=== PATIENT | female | born 1940 | race Caucasian/White ===

== ENCOUNTER 2018-11-27 14:05 | Emergency (ER) | payer MEDICARE, OTHER ==
--- NOTE | 2018-11-27 14:57 | ERPHSYRPT ---
- History of Present Illness Time Seen by Provider: 11/27/18 14:57 Source: patient Exam Limitations: no limitations Patient Subjective Stated Complaint: Pt states "I was mowing and I was filling up the mower and the gas sprayed into my face and eyes." Triage Nursing Assessment: Pt alert and oriented X 3, skin pwd. Pt ambulates with an upright steady gait, able to speak in clear full sentences. PT in no apparent respiratory distress. PT right eye sliglhtly red Physician History: Pt states "I was mowing and I was filling up the mower and the gas sprayed into my face and eyes." Timing/Duration: today Location: right eye Severity: mild Apparent Injury: no Associated Symptoms: burning Visual Assistive Devices: None Allergies/Adverse Reactions: shrimp Allergy (Severe, Verified 11/27/18 14:33) diphenhydramine [From Benadryl] Allergy (Verified 11/27/18 14:33) Penicillins Allergy (Verified 11/27/18 14:33) Home Medications: Alendronate Sodium [Fosamax] 70 mg PO DAILY 11/27/18 [History] Hx Tetanus, Diphtheria Vaccination/Date Given: Yes Hx Influenza Vaccination/Date Given: Yes Hx Pneumococcal Vaccination/Date Given: Yes Immunizations Up to Date: Yes - Review of Systems Constitutional: No Symptoms Eyes: Eye Pain, Eye Redness, No Photophobia, No Tearing, No Vision Changes, No Double Vision, No Foreign Body Sensation Ears, Nose, & Throat: No Symptoms Respiratory: No Symptoms - Past Medical History Pertinent Past Medical History: No - Past Surgical History Past Surgical History: Yes Other Surgical History: hysterectomy. ocvarian. rt foot. back - Social History Smoking Status: Never smoker Exposure to second hand smoke: No Drug Use: none Patient Lives Alone: Yes - Female History Hx Now: No - Nursing Vital Signs Nursing Vital Signs: Initial Vital Signs Temperature 98.8 F 11/27/18 14:25 Pulse Rate 82 11/27/18 14:25 Respiratory Rate 16 11/27/18 14:25 Blood Pressure 133/72 11/27/18 14:25 O2 Sat by Pulse Oximetry 97 11/27/18 14:25 Pain Scale Pain Intensity 3 - Physical Exam General Appearance: no apparent distress Vision Acuity Degree Evaluation Phase: Corrected Vision Acuity Right Eye: 20/20 Eye Exam: bilateral eye: normal inspection, PERRL, EOMI SpO2: 97 - Course Nursing assessment & vital signs reviewed: Yes - Progress Progress: unchanged Counseled pt/family regarding: diagnosis, need for follow-up - Departure Departure Disposition: Home Clinical Impression: Chemical exposure of eye Condition: Stable Critical Care Time: No Referrals: SAVITA CHAPPELL [Primary Care Provider] - Instructions: Chemical Eye Injury (DC) Additional Instructions: EYE PROBLEM 1. If a patch is applied, your vision will be impaired. Do not drive. 2. The more you rest your good eye, the better your affected eye will feel. 3. Use any eye drops or ointments as prescribed by the emergency room physician. 4. See your family physician or return to the emergency department for any increasing pain or decreased vision. 5. Use good hygiene and keep eye clean. 6. Do not rub the eye. use prescribed eye drops for 5 days
[2018-11-27 15:01] VITALS: BP 146/72; PULSE 16
[2018-11-27 15:03] VITALS: O2SAT 97
== END 2018-11-27 15:10 | disposition home or self-care (01) ==
LOC: ED 14:05
DX: H16.211 Exposure keratoconjunctivitis, right eye (principal); Z77.098 Contact with and (suspected) exposure to other hazardous, chiefly nonmedicinal, chemicals
CPT/HCPCS: 99284; A9270-GY

== ENCOUNTER 2022-12-27 21:04 | Emergency (ER) | payer MEDICARE ==
[2022-12-27 21:23] LABS: Absolute Neutrophil Ct (ANC) 2.02 x10^3/uL (1.4-6.9); BASOPHIL % 0.8 % (0.0-0.4); Basophil (Absolute #) 0.03 x10^3/uL (0-0.4); Eosinophil (Absolute #) 0.27 x10^3/uL (0-0.5); Hematocrit 32.2 % (35-47); Hemoglobin 10.8 g/dL (12.0-16.0); IMMATURE GRAN # 0.01 x10^3u/L (0.00-0.03); IMMATURE GRAN % 0.3 % (0.00-0.4); Lymphocyte (Absolute #) 0.99 x10^3/uL (1.0-4.6); Lymphocytes % 25.8 % (24.0-44.0); Mean Cell Volume 94.4 fL (78-100); Mean Corpuscular Hemoglobin 31.7 pg (26-32); Mean Corpuscular Hgb Concent. 33.5 g/dL (32-36); Monocyte (Absolute #) 0.51 x10^3/uL (0.0-1.3); Monocytes % 13.3 % (0.0-12.0); Neutrophil % 52.8 % (36.0-66.0); Platelet Count 186 x10^3/uL (150-450); Red Blood Count 3.41 x10^6/uL (4.1-5.4); Red Cell Distribution Width 12.9 % (11.5-14.0); White Blood Count 3.8 x10^3/uL (4.0-10.5)
[2022-12-27 21:37] LABS: ALBUMIN 4.5 g/dL (3.5-5.0); ANION GAP 15.9 MEQ/L (5-15); BILIRUBIN,TOTAL 0.6 mg/dL (0.2-1.3); Creatinine 1 1.21 mg/dL (0.52-1.04); EST GLOMERULAR FILTRATION RATE 45.3 ML/MIN; INR 0.96 (0.8-3.0); MAGNESIUM 2.1 mg/dL (1.6-2.3); PROTIME 10.5 SECONDS (9.4-12.5); PTT 31.4 SECONDS (25.1-36.5); Potassium 4.6 mmol/L (3.5-5.1); Total Protein 7.5 g/dL (6.3-8.2)
--- NOTE | 2022-12-27 21:53 | ERPHSYRPT ---
- History of Present Illness Source: patient Exam Limitations: no limitations Patient Subjective Stated Complaint: pt states she has been feeling bad for approx 1 hour and worse for last 20 min Triage Nursing Assessment: pt alert and oriented, answers questions approp. pt back to room per wheelchair, transfers to stretcher with assist of 1. respirations nonlabored. skin warm and dry. heart rate 70-99 on monitor, a fib. 2-3+ edema to bilat lower ext. Physician History: 82 yo WF w 1 hr onset of palpatations/mild dyspnea/mild chest tightness while sitting. Her Apple Watch stated that she was in Afib which she was upon ER arrival. Pt only has a h/o HTN and denies Afib/AZ/CAD/DM/tobacco use/hyperlipidemia. Timing/Duration: hour(s) (1hour) Activities at Onset: rest (Sitting in chair) Quality: tightness Location: substernal Chest Pain Radiation: no radiation Severity of Pain-Max: moderate Severity of Pain-Current: mild Modifying Factors: Improves With: nothing Nitro Today/Relief: no nitro taken today Aspirin Treatment Today: no aspirin today Associated Symptoms: denies symptoms, shortness of breath, chest pain Prior Chest Pain/Cardiac Workup: no prior chest pain Allergies/Adverse Reactions: Iodinated Contrast Media Allergy (Severe, Verified 12/27/22 21:34) shrimp Allergy (Severe, Verified 12/27/22 21:34) diphenhydramine [From Benadryl] Allergy (Intermediate, Verified 12/27/22 21:34) doxycycline [From Vibramycin] Allergy (Intermediate, Verified 12/27/22 21:34) influenza virus vaccine ts [id number] (36 mos,up) [From Fluarix] Allergy (Intermediate, Verified 12/27/22 21:56) Penicillins Allergy (Intermediate, Verified 12/27/22 21:34) Home Medications: Losartan Potassium [Cozaar] 100 mg PO DAILY 12/27/22 [History] Oxybutynin Chloride [Ditropan Xl] 5 mg PO TIDPRN PRN 12/27/22 [History] Ropinirole HCl 1 mg PO BID PRN PRN 12/27/22 [History] Hx Tetanus, Diphtheria Vaccination/Date Given: Yes Hx Influenza Vaccination/Date Given: No Hx Pneumococcal Vaccination/Date Given: Yes Immunizations Up to Date: Yes Travel Risk - International Travel Have you traveled outside of the country in past 3 weeks: No - Coronavirus Screening Are you exhibiting any of the following symptoms?: No Close contact with a COVID-19 positive Pt in past 14-21 Days: No - Vaccine Status Have you recieved a Covid-19 vaccination: No - Review of Systems Constitutional: No Symptoms Eyes: No Symptoms Ears, Nose, & Throat: No Symptoms Respiratory: No Symptoms, Dyspnea Cardiac: No Symptoms, Chest Pain Abdominal/Gastrointestinal: No Symptoms Genitourinary Symptoms: No Symptoms Musculoskeletal: No Symptoms Skin: No Symptoms Neurological: No Symptoms Psychological: No Symptoms Endocrine: No Symptoms Hematologic/Lymphatic: No Symptoms Immunological/Allergic: No Symptoms - Past Medical History Pertinent Past Medical History: Yes Neurological History: No Pertinent History Cardiac History: Hypertension Respiratory History: No Pertinent History Endocrine Medical History: No Pertinent History Musculoskeletal History: Osteoarthritis Other Medical History: Bonionectomy and fusions in 1993 - Past Surgical History Past Surgical History: Yes Other Surgical History: hysterectomy. ocvarian. rt foot. back - Social History Smoking Status: Never smoker Exposure to second hand smoke: No Drug Use: none Patient Lives Alone: Yes - Nursing Vital Signs Nursing Vital Signs: Initial Vital Signs Temperature 97.2 F 12/27/22 21:05 Pulse Rate 84 12/27/22 21:05 Respiratory Rate 18 12/27/22 21:05 Blood Pressure 159/100 12/27/22 21:05 O2 Sat by Pulse Oximetry 99 12/27/22 21:05 Pain Scale Pain Intensity 4 Hypertensive - Physical Exam General Appearance: no apparent distress Eye Exam: PERRL/EOMI, eyes nml inspection Ears, Nose, Throat Exam: normal ENT inspection, TMs normal, pharynx normal, moist mucous membranes Neck Exam: normal inspection, non-tender, supple, full range of motion, No meningismus, No mass, No Brudzinski, No Kernig's, No carotid bruit Respiratory Exam: normal breath sounds, lungs clear, airway intact, No chest tenderness, No respiratory distress Cardiovascular Exam: capillary refill <2 sec, other (IR-IR), No murmur Gastrointestinal/Abdomen Exam: soft, normal bowel sounds, No tenderness Back Exam: normal inspection, normal range of motion, No CVA tenderness, No vertebral tenderness Extremity Exam: normal inspection, normal range of motion Neurologic Exam: alert, oriented x 3, cooperative, business info consultant II-XII nml as tested, normal mood/affect, nml cerebellar function, nml station & gait, sensation nml Skin Exam: normal color, warm, dry Lymphatic Exam: No adenopathy SpO2 Interpretation: normal SpO2: 97 O2 Delivery: Room Air - Course EKG Interpreted by Me: RATE (Rate 83/Afib/Normal QT-QTc/Nonspecific ST changes) Ordered Tests: Active Orders 24 hr Category Date Time Status EKG-ER Only STAT Care 12/27/22 21:12 Completed CHEST 1 VIEW (PORTABLE) Stat Exams 12/27/22 21:13 Completed CBC W DIFF Stat Lab 12/27/22 21:20 Completed CMP Stat Lab 12/27/22 21:20 Completed MAGNESIUM Stat Lab 12/27/22 21:20 Completed NT PRO BNPII Stat Lab 12/27/22 21:20 Completed PROTIME WITH INR Stat Lab 12/27/22 21:20 Completed PTT Stat Lab 12/27/22 21:20 Completed TROPONIN Q4H Lab 12/27/22 21:20 Completed Medication Summary Discontinued Medications Generic Name Dose Route Start Last Admin Trade Name Freq PRN Reason Stop Dose Admin Enoxaparin Sodium 70 mg 12/27/22 23:33 12/28/22 00:09 Enoxaparin Sodium 80 Mg/0.8 Ml Syringe SQ 12/27/22 23:34 70 mg STAT ONE Administration Enoxaparin Sodium Confirm 12/28/22 00:08 Enoxaparin Sodium 80 Mg/0.8 Ml Syringe Administered 12/28/22 00:09 Dose 80 mg SQ .STK-MED ONE Lab/Rad Data: Laboratory Result Diagrams 12/27/22 21:20 12/27/22 21:20 Laboratory Results 12/27/22 12/27/22 12/27/22 Range/Units 21:20 21:20 21:20 WBC (4.0-10.5) x10^3/uL RBC (4.1-5.4) x10^6/uL Hgb (12.0-16.0) g/dL Hct (35-47) % MCV (78-100) fL MCH (26-32) pg MCHC (32-36) g/dL RDW (11.5-14.0) % Plt Count (150-450) x10^3/uL MPV (7.5-11.0) fL Gran % (36.0-66.0) % Immature Gran % (Auto) (0.00-0.4) % Nucleat RBC Rel Count (0.00-0.1) % Eos # (Auto) (0-0.5) x10^3/uL Immature Gran # (Auto) (0.00-0.03) x10^3u/L Absolute Lymphs (auto) (1.0-4.6) x10^3/uL Absolute Monos (auto) (0.0-1.3) x10^3/uL Absolute Nucleated RBC (0.00-0.01) x10^3u/L Lymphocytes % (24.0-44.0) % Monocytes % (0.0-12.0) % Eosinophils % (0.00-5.0) % Basophils % (0.0-0.4) % Absolute Granulocytes (1.4-6.9) x10^3/uL Basophils # (0-0.4) x10^3/uL PT 10.5 (9.4-12.5) SECONDS INR 0.96 (0.8-3.0) APTT 31.4 (25.1-36.5) SECONDS Sodium (137-145) mmol/L Potassium (3.5-5.1) mmol/L Chloride (98-107) mmol/L Carbon Dioxide (22-30) mmol/L Anion Gap (5-15) MEQ/L BUN (7-17) mg/dL Creatinine (0.52-1.04) mg/dL Estimated GFR ML/MIN Glucose (74-106) mg/dL Calcium (8.4-10.2) mg/dL Magnesium (1.6-2.3) mg/dL Total Bilirubin (0.2-1.3) mg/dL AST (14-36) U/L ALT (0-35) U/L Alkaline Phosphatase (38-126) U/L Troponin I < 0.012 (0.000-0.034) ng/mL NT-Pro-B Natriuret Pep 1010 (<300) pg/mL Serum Total Protein (6.3-8.2) g/dL Albumin (3.5-5.0) g/dL 12/27/22 12/27/22 Range/Units 21:20 21:20 WBC 3.8 L (4.0-10.5) x10^3/uL RBC 3.41 L (4.1-5.4) x10^6/uL Hgb 10.8 L (12.0-16.0) g/dL Hct 32.2 L (35-47) % MCV 94.4 (78-100) fL MCH 31.7 (26-32) pg MCHC 33.5 (32-36) g/dL RDW 12.9 (11.5-14.0) % Plt Count 186 (150-450) x10^3/uL MPV 9.0 (7.5-11.0) fL Gran % 52.8 (36.0-66.0) % Immature Gran % (Auto) 0.3 (0.00-0.4) % Nucleat RBC Rel Count 0.0 (0.00-0.1) % Eos # (Auto) 0.27 (0-0.5) x10^3/uL Immature Gran # (Auto) 0.01 (0.00-0.03) x10^3u/L Absolute Lymphs (auto) 0.99 L (1.0-4.6) x10^3/uL Absolute Monos (auto) 0.51 (0.0-1.3) x10^3/uL Absolute Nucleated RBC 0.00 (0.00-0.01) x10^3u/L Lymphocytes % 25.8 (24.0-44.0) % Monocytes % 13.3 H (0.0-12.0) % Eosinophils % 7.0 H (0.00-5.0) % Basophils % 0.8 (0.0-0.4) % Absolute Granulocytes 2.02 (1.4-6.9) x10^3/uL Basophils # 0.03 (0-0.4) x10^3/uL PT (9.4-12.5) SECONDS INR (0.8-3.0) APTT (25.1-36.5) SECONDS Sodium 136 L (137-145) mmol/L Potassium 4.6 (3.5-5.1) mmol/L Chloride 99 (98-107) mmol/L Carbon Dioxide 26 (22-30) mmol/L Anion Gap 15.9 H (5-15) MEQ/L BUN 27 H (7-17) mg/dL Creatinine 1.21 H (0.52-1.04) mg/dL Estimated GFR 45.3 ML/MIN Glucose 95 (74-106) mg/dL Calcium 10.0 (8.4-10.2) mg/dL Magnesium 2.1 (1.6-2.3) mg/dL Total Bilirubin 0.60 (0.2-1.3) mg/dL AST 32 (14-36) U/L ALT 16 (0-35) U/L Alkaline Phosphatase 78 (38-126) U/L Troponin I (0.000-0.034) ng/mL NT-Pro-B Natriuret Pep (<300) pg/mL Serum Total Protein 7.5 (6.3-8.2) g/dL Albumin 4.5 (3.5-5.0) g/dL - Progress Progress Note: 12/27/22 23:34 Nursing note and vital signs reviewed No food or housing insecurities noted Pt arrived in Afib w RVR which very quickly decreased to Rate controlled Afib wo any treatment Cardioversion considered since Afib of less than 24 hours in duration, but pt not ok w idea Additional history later per daughter Pt/daughter requested transfer to [facility] Pt accepted by Dr. Mcgrath at [facility]. 70mg sq Lovenox per Dr. Mcgrath 12/28/22 00:54 Counseled pt/family regarding: lab results, diagnosis, rad results Medical Desision Making - Independent Historian Additional History obtained from: Child - Discussion of managment Care discussed with:: hospitalist - Diagnostic Testing Diagnostic test were ordered, analyzed, and reviewed by me: Yes Radiological Interpretation: Interpreted by me - Risk of complications The pt has a high risk of morbidity or mortality based on: Drug therapy requiring intensive monitoring for toxicity - Departure Departure Disposition: Transfer Clinical Impression: Atrial fibrillation with controlled ventricular rate Condition: Stable Critical Care Time: No Referrals: JEN ORTIZ MD [Primary Care Provider] - Follow up/PCP as directed Instructions: Arrhythmias (DC), Palpitations (DC)
--- NOTE | 2022-12-27 22:23 | XRAY ---
Indication: Dyspnea. Atrial fibrillation. Comparison: None Portable chest inflated and clear. Heart not enlarged. Tortuous descending aorta. Bony thorax intact with osteopenia, mild degenerative changes, and mild lumbar dextroscoliosis. Impression: Nonacute chest with chronic features.
[2022-12-27 23:20] VITALS: O2SAT 97
[2022-12-27] MEDS ORDERED: ENOXAPARIN SODIUM SQ ONE (23:33)
[2022-12-28] MEDS ORDERED: ENOXAPARIN SODIUM SQ ONE (00:08)
[2022-12-28 00:13] VITALS: BP 154/82; PULSE 76
== END 2022-12-28 00:18 | disposition short-term general hospital (02) ==
LOC: ED 21:04
DX: I48.91 Unspecified atrial fibrillation (principal); R06.00 Dyspnea, unspecified; R07.9 Chest pain, unspecified; I10 Essential (primary) hypertension; Z79.899 Other long term (current) drug therapy; Z28.310 Unvaccinated for COVID-19
CPT/HCPCS: 36000; 36415; 71045; 80053; 83735; 83880; 84484; 85025; 85610; 85730; 93005; 96372; 99285; J1650

== ENCOUNTER 2024-08-31 22:29 | Emergency (ER) | payer MEDICARE ==
[2024-08-31 22:51] VITALS: TEMP 98.7
[2024-08-31] MEDS ORDERED: BABY ASPIRIN 81 MG CHEW ONE (23:00)
[2024-08-31] MEDS: BABY ASPIRIN 81 MG CHEW PO ONE (23:01)
[2024-08-31 23:08] LABS: Absolute Neutrophil Ct (ANC) 6.81 x10^3/uL (1.56-6.13); BASOPHIL % 0.4 % (0.1-1.2); Basophil (Absolute #) 0.03 x10^3/uL (0.01-0.08); Eosinophil % 1.8 % (0.7-5.8); Eosinophil (Absolute #) 0.14 x10^3/uL (0.04-0.36); Hematocrit 36.8 % (34.1-44.9); Hemoglobin 12.3 g/dL (11.2-15.7); IMMATURE GRAN # 0.04 x10^3u/L (0.001-0.031); IMMATURE GRAN % 0.5 % (0.001-0.429); Lymphocyte (Absolute #) 0.15 x10^3/uL (1.18-3.74); Mean Cell Volume 93.9 fL (79.4-94.8); Mean Corpuscular Hemoglobin 31.4 pg (25.6-32.2); Mean Corpuscular Hgb Concent. 33.4 g/dL (32.2-35.5); Mean Platelet Volume 8.5 fL (9.4-12.3); Monocyte (Absolute #) 0.45 x10^3/uL (0.24-0.86); Monocytes % 5.9 % (4.7-12.5); Neutrophil % 89.4 % (34.0-71.1); Platelet Count 212 x10^3/uL (182-369); Red Blood Count 3.92 x10^6/uL (3.93-5.22); Red Cell Distribution Width 13.1 % (11.7-14.4); White Blood Count 7.6 x10^3/uL (3.98-10.04)
--- NOTE | 2024-08-31 23:12 | ERPHSYRPT ---
- History of Present Illness Time Seen by Provider: 08/31/24 22:51 Source: patient, family Exam Limitations: no limitations Patient Subjective Stated Complaint: pt states that she began to have chest pain 1 hour prior to coming in. pt states she took 1 nitro with no relief Triage Nursing Assessment: pt came into the er via wheelchair; pt transfer to cot per self; pt is axo x4; pt is anxious and tearful; c/o chest pain; pt states 6/10 pain to chest; c/o N/V; pt states lightheadness; clear apical heart tone; strong kwesi radial pulses; strong kwesi pedal pulses; pt denies SOB; no respiratory distress present; skin PDW; hypertensive Physician History: 83-year-old female with history of hypertension, hyperlipidemia, atrial fibrillation on Eliquis, congestive heart failure, CAD presented in the ER with complains of sudden onset nausea vomiting and diarrhea with multiple episodes since around 7:30 PM. Patient reports an hour long history of substernal chest pain moderate intensity without any significant aggravating or relieving factors. She took 1 nitro prior to arrival with no significant relief. Currently rates 6/10 intensity pain. Also complaining of moderate intensity dull aching abdominal pain. Denies any cough or difficulty breathing. Allergies/Adverse Reactions: Iodinated Contrast Media Allergy (Severe, Verified 08/31/24 22:31) shrimp Allergy (Severe, Verified 08/31/24 22:31) diphenhydramine [From Benadryl] Allergy (Intermediate, Verified 08/31/24 22:31) doxycycline [From Vibramycin] Allergy (Intermediate, Verified 08/31/24 22:31) influenza virus vaccine ts [id number] (36 mos,up) [From Fluarix] Allergy (Intermediate, Verified 08/31/24 22:31) Penicillins Allergy (Intermediate, Verified 08/31/24 22:31) Home Medications: Ropinirole HCl 1 mg PO BID PRN PRN 12/27/22 [History] Isosorbide Mononitrate 60 mg [Imdur 60MG] 60 mg PO DAILY 08/31/24 [History] Metoprolol Succinate 12.5 mg PO DAILY 08/31/24 [History] Sulfamethoxazole/Trimethoprim [Sulfamethoxazole-Tmp Ds Tablet] 1 each PO BID 08/31/24 [History] Hx Tetanus, Diphtheria Vaccination/Date Given: Yes Hx Influenza Vaccination/Date Given: No Hx Pneumococcal Vaccination/Date Given: Yes Travel Risk - International Travel Have you traveled outside of the country in past 3 weeks: No - Emerging Infectious Disease Are you exhibiting symptoms associated with any current EIDs: No - Review of Systems Constitutional: Fatigue Eyes: No Symptoms Ears, Nose, & Throat: No Symptoms Respiratory: No Symptoms Cardiac: Chest Pain Abdominal/Gastrointestinal: Abdominal Pain, Nausea, Vomiting, Diarrhea Genitourinary Symptoms: No Symptoms Musculoskeletal: Arthralgias Skin: No Symptoms Neurological: Dizziness, Headache Endocrine: No Symptoms Hematologic/Lymphatic: No Symptoms Immunological/Allergic: No Symptoms - Past Medical History Pertinent Past Medical History: Yes Neurological History: No Pertinent History Cardiac History: Congestive Heart Failure, Hypertension Respiratory History: No Pertinent History Endocrine Medical History: No Pertinent History Musculoskeletal History: Osteoarthritis Other Medical History: Bonionectomy and fusions in 1993 - Past Surgical History Past Surgical History: Yes Other Surgical History: hysterectomy. ocvarian. rt foot. back - Social History Smoking Status: Never smoker Exposure to second hand smoke: No Drug Use: none Patient Lives Alone: Yes - Social Determinants of Health Will the patient participate in the screening: Yes Do you worry about a steady place to live?: No Do you have any problems with any of the following?: No known problems In the past 12 months,have you had to go without utilities?: No Transportation Issues: No Has anyone in your support network made you feel unsafe?: No Have you or anyone in your house had to go without enough: No - Nursing Vital Signs Nursing Vital Signs: Initial Vital Signs Temperature 98.7 F 08/31/24 22:29 Pulse Rate 76 08/31/24 22:29 Respiratory Rate 22 08/31/24 22:29 Blood Pressure 175/86 08/31/24 22:29 O2 Sat by Pulse Oximetry 97 08/31/24 22:29 Pain Scale Pain Intensity 4 - Physical Exam General Appearance: no apparent distress Eye Exam: PERRL/EOMI Ears, Nose, Throat Exam: normal ENT inspection Neck Exam: normal inspection, non-tender, supple, full range of motion Respiratory Exam: normal breath sounds, lungs clear Cardiovascular Exam: regular rate/rhythm, normal heart sounds Gastrointestinal/Abdomen Exam: soft, normal bowel sounds, tenderness (Mild generalized) Back Exam: normal inspection Extremity Exam: normal inspection, normal range of motion, pelvis stable Neurologic Exam: alert, oriented x 3, cooperative Skin Exam: normal color SpO2 Interpretation: normal SpO2: 97 O2 Delivery: Room Air - Course EKG Interpreted by Me: RATE (75), Sinus Rhythm, NORMAL AXIS, NORMAL INTERVALS, Non-specific ST Changes Ordered Tests: Active Orders 24 hr Category Date Time Status Credit Review Manager STAT Care 08/31/24 22:51 Active EKG-ER Only STAT Care 08/31/24 22:51 Active IV Insertion STAT Care 08/31/24 22:51 Active ABDOMEN AND PELVIS W/0 CONTRAS [CT] Stat Exams 08/31/24 23:34 Completed CHEST 1 VIEW (PORTABLE) Stat Exams 08/31/24 23:13 Completed CBC W DIFF Stat Lab 08/31/24 23:00 Completed CMP Stat Lab 08/31/24 23:00 Completed LIPASE Stat Lab 08/31/24 23:00 Completed Lactic Acid Stat Lab 08/31/24 23:30 Completed MAGNESIUM Stat Lab 08/31/24 23:00 Completed NT PRO BNPII Stat Lab 08/31/24 23:00 Completed PROCALCITONIN Stat Lab 08/31/24 23:00 Completed TROPONIN Q4H Lab 08/31/24 23:00 Completed TROPONIN Q4H Lab 09/01/24 02:19 Received TROPONIN Q4H Lab 09/01/24 07:00 Ordered UA W/RFX UR CULTURE Stat Lab 08/31/24 23:05 Ordered Medication Summary Generic Name Dose Route Start Last Admin Trade Name Freq PRN Reason Stop Dose Admin Sodium Chloride 1,000 mls @ 100 mls/hr 08/31/24 23:15 Sodium Chloride 0.9% 1000 Ml IV 09/30/24 23:14 .Q10H SHELLI Discontinued Medications Generic Name Dose Route Start Last Admin Trade Name Freq PRN Reason Stop Dose Admin Aspirin 324 mg 08/31/24 22:51 08/31/24 23:01 Aspirin 81 Mg Tab.Chew PO 08/31/24 22:52 324 mg STAT ONE Administration Aspirin Confirm 08/31/24 23:00 Aspirin 81 Mg Tab.Chew Administered 08/31/24 23:01 Dose 324 mg .ROUTE .STK-MED ONE Morphine Sulfate 2 mg 08/31/24 23:06 Morphine Sulfate 2 Mg/Ml Inj IV 08/31/24 23:07 STAT ONE Ondansetron HCl 4 mg 08/31/24 23:06 Ondansetron Hcl 4 Mg/2 Ml Vial IV 08/31/24 23:07 STAT ONE Ondansetron HCl 4 mg 08/31/24 23:06 08/31/24 23:40 Zofran 4 Mg/Udtablet Orally Disintegrating PO 08/31/24 23:07 4 mg STAT ONE Administration Ondansetron HCl Confirm 08/31/24 23:40 Zofran 4 Mg/Udtablet Orally Disintegrating Administered 08/31/24 23:41 Dose 4 mg .ROUTE .[facility]-MED ONE Lab/Rad Data: Laboratory Result Diagrams 08/31/24 23:00 08/31/24 23:00 Laboratory Results 09/01/24 08/31/24 08/31/24 Range/Units 00:30 23:30 23:00 WBC (3.98-10.04) x10^3/uL RBC (3.93-5.22) x10^6/uL Hgb (11.2-15.7) g/dL Hct (34.1-44.9) % MCV (79.4-94.8) fL MCH (25.6-32.2) pg MCHC (32.2-35.5) g/dL RDW (11.7-14.4) % Plt Count (182-369) x10^3/uL MPV (9.4-12.3) fL Gran % (34.0-71.1) % Immature Gran % (Auto) (0.001-0.429) % Nucleat RBC Rel Count (0.00-0.2) % Eos # (Auto) (0.04-0.36) x10^3/uL Immature Gran # (Auto) (0.001-0.031) x10^3u/L Absolute Lymphs (auto) (1.18-3.74) x10^3/uL Absolute Monos (auto) (0.24-0.86) x10^3/uL Absolute Nucleated RBC (0.00-0.012) x10^3u/L Lymphocytes % (19.3-51.7) % Monocytes % (4.7-12.5) % Eosinophils % (0.7-5.8) % Basophils % (0.1-1.2) % Absolute Granulocytes (1.56-6.13) x10^3/uL Basophils # (0.01-0.08) x10^3/uL Sodium (135-145) mmol/L Potassium (3.5-5.1) mmol/L Chloride (98-107) mmol/L Carbon Dioxide (22-30) mmol/L Anion Gap (5-15) MEQ/L BUN (7-17) mg/dL Creatinine (0.52-1.04) mg/dL Estimated GFR ML/MIN Glucose (74-106) mg/dL Lactic Acid 1.2 (0.4-2.0) Calcium (8.4-10.2) mg/dL Magnesium (1.6-2.3) mg/dL Total Bilirubin (0.2-1.3) mg/dL AST (14-36) U/L ALT (0-35) U/L Alkaline Phosphatase (38-126) U/L Troponin I (0.000-0.033) ng/mL NT-Pro-B Natriuret Pep (<300) pg/mL Serum Total Protein (6.3-8.2) g/dL Albumin (3.5-5.0) g/dL Lipase (23-300) U/L Procalcitonin 0.181 H (0.030-0.080) ng/mL Influenza Type A Ag NEGATIVE (NEGATIVE) Influenza Type B Ag NEGATIVE (NEGATIVE) RSV (PCR) NEGATIVE (NEGATIVE) SARS-CoV-2 (PCR) NEGATIVE (NEGATIVE) 08/31/24 08/31/24 08/31/24 Range/Units 23:00 23:00 23:00 WBC 7.6 (3.98-10.04) x10^3/uL RBC 3.92 L (3.93-5.22) x10^6/uL Hgb 12.3 (11.2-15.7) g/dL Hct 36.8 (34.1-44.9) % MCV 93.9 (79.4-94.8) fL MCH 31.4 (25.6-32.2) pg MCHC 33.4 (32.2-35.5) g/dL RDW 13.1 (11.7-14.4) % Plt Count 212 (182-369) x10^3/uL MPV 8.5 L (9.4-12.3) fL Gran % 89.4 H (34.0-71.1) % Immature Gran % (Auto) 0.5 H (0.001-0.429) % Nucleat RBC Rel Count 0.0 (0.00-0.2) % Eos # (Auto) 0.14 (0.04-0.36) x10^3/uL Immature Gran # (Auto) 0.04 H (0.001-0.031) x10^3u/L Absolute Lymphs (auto) 0.15 L (1.18-3.74) x10^3/uL Absolute Monos (auto) 0.45 (0.24-0.86) x10^3/uL Absolute Nucleated RBC 0.00 (0.00-0.012) x10^3u/L Lymphocytes % 2.0 L (19.3-51.7) % Monocytes % 5.9 (4.7-12.5) % Eosinophils % 1.8 (0.7-5.8) % Basophils % 0.4 (0.1-1.2) % Absolute Granulocytes 6.81 H (1.56-6.13) x10^3/uL Basophils # 0.03 (0.01-0.08) x10^3/uL Sodium 139 (135-145) mmol/L Potassium 4.7 (3.5-5.1) mmol/L Chloride 105 (98-107) mmol/L Carbon Dioxide 25 (22-30) mmol/L Anion Gap 14.5 (5-15) MEQ/L BUN 18 H (7-17) mg/dL Creatinine 1.31 H (0.52-1.04) mg/dL Estimated GFR 40.4 ML/MIN Glucose 121 H (74-106) mg/dL Lactic Acid (0.4-2.0) Calcium 9.8 (8.4-10.2) mg/dL Magnesium 2.1 (1.6-2.3) mg/dL Total Bilirubin 1.00 (0.2-1.3) mg/dL AST 34 (14-36) U/L ALT 16 (0-35) U/L Alkaline Phosphatase 81 (38-126) U/L Troponin I < 0.012 (0.000-0.033) ng/mL NT-Pro-B Natriuret Pep 1400 (<300) pg/mL Serum Total Protein 7.7 (6.3-8.2) g/dL Albumin 4.9 (3.5-5.0) g/dL Lipase 97 (23-300) U/L Procalcitonin (0.030-0.080) ng/mL Influenza Type A Ag (NEGATIVE) Influenza Type B Ag (NEGATIVE) RSV (PCR) (NEGATIVE) SARS-CoV-2 (PCR) (NEGATIVE) - Progress Progress: improved, re-examined Progress Note: 09/01/24 03:47 83 years old female with multiple medical problems including atrial fibrillation on Eliquis, congestive heart failure, CAD, hypertension is evaluated in the ER for gastroenteritis symptoms. Patient had multiple episodes of vomiting and di arrhea. She has been taking Bactrim for the last few days for sinusitis. EKG is sinus rhythm and no acute ST elevation. Patient has negative troponin x 2. She has no chest pain. Workup showed normal white count, chemistries fairly okay with a creatinine of 1.3 with a baseline of 1.1. Has normal lactate, has a Pro-Noe of 0.18. No obvious focus of infection. 's CT abdomen pelvis showed finding consistent with enteritis which I believe is viral etiology but the fact patient is on antibiotics it would be covered if any bacterial element is involved. Patient was a hard stick and on multiple attempts could not get an IV. I have offered central line but patient does not want it. 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 She is given symptomatic treatment, on reevaluation she is able to tolerate orally very well. She had initially vomiting while in the ER which improved and no vomiting afterwards. I would give her Zofran to go home and outpatient follow-up recommended. Recommended increase hydration. Discussed signs symptoms of worsening needing return to ER which she seems understanding. Also recommended outpatient follow- up with primary care for recheck of renal functions. Counseled pt/family regarding: lab results, diagnosis, need for follow-up, rad results Medical Desision Making - Independent Historian Additional History obtained from: Child - Diagnostic Testing Diagnostic test were ordered, analyzed, and reviewed by me: Yes Radiological Interpretation: Reviewed by me, Teleradiologist Report - Risk of complications The pt has a mod risk of morbidity or mortality based on: Need for prescription drug management - Departure Departure Disposition: Home Clinical Impression: Acute gastroenteritis, Atypical chest pain Condition: Stable Critical Care Time: No Referrals: JEN ORTIZ MD [Primary Care Provider] - Follow up with PCP 1 day Instructions: Viral gastroenteritis in adults Additional Instructions: Drink plenty of fluids. Take Tylenol as needed. Follow-up with your primary care for reevaluation and recheck of kidney functions in 1 to 2 days. Return to ER for intractable vomiting/diarrhea, decreased oral intake/urine output or if develop fever chills/chest pain or difficulty breathing etc.
[2024-08-31 23:25] LABS: ALBUMIN 4.9 g/dL (3.5-5.0); ANION GAP 14.5 MEQ/L (5-15); Calcium 9.8 mg/dL (8.4-10.2); Creatinine 1 1.31 mg/dL (0.52-1.04); EST GLOMERULAR FILTRATION RATE 40.4 ML/MIN; MAGNESIUM 2.1 mg/dL (1.6-2.3); Potassium 4.7 mmol/L (3.5-5.1); Total Protein 7.7 g/dL (6.3-8.2)
[2024-08-31 23:37] LABS: NT PRO BNPII 1400 pg/mL (<300); TROPONIN < 0.012 ng/mL (0.000-0.033)
[2024-08-31] MEDS: ZOFRAN ODT 4 MG PO ONE (23:40)
[2024-08-31] MEDS ORDERED: ZOFRAN ODT 4 MG ONE (23:40)
--- NOTE | 2024-08-31 23:45 | XRAY ---
CLINICAL HISTORY: cp COMPARISON: Radiograph dated 12/27/2022. TECHNIQUE: An X-ray image of the chest is obtained using an AP projection. FINDINGS: Pulmonary Parenchyma: Prominent perihilar broncho-vascular markings bilaterally. There is no evidence of consolidation, collapse, or focal opacities. No pulmonary nodules are identified. There is no evidence of pleural effusion or pleural thickening. Heart and Mediastinum: Heart size and shape are normal. Stable aortic contours. The prominent left hilum may represent a vascular shadow versus an enlarged lymph node. Bony Thorax: Degenerative changes in the spine with mild levoscoliotic deformity. Soft Tissues: Soft tissues overlying the chest wall are unremarkable. Overlying chest leads are seen. IMPRESSION: 1. Prominent broncho-vascular markings bilaterally(stable). 2. No evidence of consolidation, collapse, or pleural effusion(stable). 3. No other change since the last radiograph. Electronically Signed by: Elmo Olmos MD. (08/31/2024 23:41:45 EST)
--- NOTE | 2024-09-01 00:28 | XRAY ---
CLINICAL HISTORY: abd pain/vomiting COMPARISON: None. TECHNIQUE: CT of the abdomen and pelvis was performed, with the following protocol: axial images, and reconstructed coronal and sagittal images. No intravenous contrast was administered. One of the following dose reduction techniques was utilized for this exam: Automated exposure control, adjustment of the mA and/or kV according to patient size, and use of iterative reconstruction. FINDINGS: Abdomen: Liver: Normal in size, and density. No focal lesions, cysts, or masses were identified. Gallbladder and Biliary System: The gallbladder is normal in size and shape. No wall thickening, pericholecystic fluid, or gallstones were identified. Pancreas: Atrophied pancreas No pancreatic masses or calcifications were noted. Spleen: Normal in size, shape, and density. No splenic lesions or masses were identified. Kidneys and Adrenal Glands: Both kidneys are normal in size, shape, and position. No renal calculi or hydronephrosis. Adrenal glands are unremarkable. Pelvis: Urinary Bladder: Partially distended. Post hysterectomy status. No adnexal lesions. Peritoneal and Retroperitoneal Structures: No free fluid or abnormal fluid collections were identified within the abdomen or pelvis. The abdominal aorta shows atherosclerotic changes with calcified plaques. Bowel: Few prominent fluid filled small bowel loops are seen in the abdomen and pelvis, with maximum caliber of 26 mm, the possibility of enteritis needs to be considered. Few scattered uncomplicated colonic diverticulae. Post appendicectomy status. Bones and Soft Tissues: Severe degenerative changes in lumbar spine with dextroscoliosis. Grade II anterolisthesis of L5 over S1 with bilateral L5 pars defect. Compression fracture of L1 vertebral body with nearly 50% reduction in height and anterior wedging. IMPRESSION: 1. Few prominent fluid filled small bowel loops are seen in abdomen and pelvis, with maximum caliber of 26 mm, the possibility of enteritis needs to be considered. Recommended clinical correlation. 2. Rest of the findings as described above. Electronically Signed by: Elmo Olmos MD. (09/01/2024 00:24:54 EST)
[2024-09-01 01:09] LABS: INFLUENZA A NEGATIVE (NEGATIVE); INFLUENZA B NEGATIVE (NEGATIVE); RESPIRATORY SYNCTIAL VIRUS NEGATIVE (NEGATIVE); SARS-CoV-2 Xpert Express NEGATIVE (NEGATIVE)
[2024-09-01 02:52] VITALS: O2SAT 97
[2024-09-01] MEDS: Zofran 4 MG/2 ML VIAL IV ONE (03:11)
[2024-09-01] MEDS: Sodium Chloride 0.9% 1000 ML 1,000 ML IV SCH (03:11)
[2024-09-01] MEDS: MORPHINE SULFATE 2 MG INJ IV ONE (03:11)
[2024-09-01 03:48] VITALS: BP 143/70; PULSE 73; RESP 20
[2024-09-01 03:50] LABS: Appearance Clear (Clear); Bacteria None Seen /HPF (None Seen); Bilirubin Negative (Negative); Blood Negative (Negative); Epithelial Cells None Seen /HPF (None Seen); Glucose, Urine >=1000 mg/dL (Negative); Hyaline Casts NONE SEEN /LPF (0-2); Ketones 15 (Negative); Leukocyte Esterase Negative (Negative); Nitrite Negative (Negative); Ph 6.5 (4.6-8.0); Protein,Urine Dip Trace (Negative); Specific Gravity 1.025 (1.005-1.030); Urobilinogen 0.2 mg/dL (0.2); WBC 0-2 /HPF (0-5)
== END 2024-09-01 03:47 | disposition home or self-care (01) ==
LOC: ED 22:29
DX: A08.4 Viral intestinal infection, unspecified (principal); R07.89 Other chest pain; R11.2 Nausea with vomiting, unspecified; R10.9 Unspecified abdominal pain; I11.0 Hypertensive heart disease with heart failure; I50.9 Heart failure, unspecified; Z79.899 Other long term (current) drug therapy
CPT/HCPCS: 0241U; 36415; 71045; 74176; 80053; 81001; 83605; 83690; 83735; 83880; 84145; 84484; 85025; 93005; 93041; 99285; 99284; Q0162; A9270-GY